=== PATIENT | male | born 1975 | race Caucasian/White ===

== ENCOUNTER 2018-08-20 23:49 | Inpatient (IN) | payer MEDICAID ==
[~2018-08-20] VITALS: Ht 170.2 cm; Wt 113.4 kg
[2018-08-20 23:50] VITALS: BP 169/112
--- NOTE | 2018-08-20 23:50 | NUR ---
PT ARRIVED BY BORA DAMON AND BORA MATHEW. PLACED INTO BED 4.
--- NOTE | 2018-08-20 23:50 | NUR ---
PER EMS PT WAS GIVEN NARCAN 2MG IN. IV ESTABLISHED BY EMS HELICOPTER PILOT INSTRUCTOR, 20 GAUGE LEFT WRIST. PATENT, FLUSHED WITH 10CC NS FLUSH, NO SIGNS OF INFILTRATION.
[2018-08-20] MEDS ORDERED: NACL 0.9% 1,000 ML IV ONE (23:55)
[2018-08-20] MEDS ORDERED: NALOXONE 0.4 MG/ML VIAL IVP ONE (23:55)
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
[2018-08-21 00:17] LABS: BASOPHILS # (AUTO) 0.1 K/uL (0.00-0.22); BASOPHILS % (AUTO) 1.1 % (0.0-2.0); EOSINOPHILS # (AUTO) 0.1 K/uL (0-0.4); EOSINOPHILS % (AUTO) 0.7 % (0.0-4.0); HEMATOCRIT 46.2 % (36-52); LYMPHOCYTES # (AUTO) 2.9 K/uL (2.0-11.5); MEAN CORPUSCULAR HEMOGLOBIN 31 pg (27-31); MEAN CORPUSCULAR HGB CONC 35 g/dL (33-37); MEAN CORPUSCULAR VOLUME 90.7 fL (80-94); MONOCYTES # (AUTO) 0.6 K/uL (0.8-1.0); MONOCYTES % (AUTO) 7.8 % (1.7-9.3); NEUTROPHILS # (AUTO) 3.5 K/uL (1.8-7.7); NEUTROPHILS % (AUTO) 49.4 % (42.2-75.2); PLATELET COUNT (AUTO) 263 K/uL (140-450); RED BLOOD CELL COUNT(AUTO) 5.09 MIL/uL (4.20-6.10); RED CELL DISTRIBUTION WIDTH 13.6 % (11.6-13.7); WHITE BLOOD COUNT (AUTO) 7.2 K/uL (4.8-10.8)
[2018-08-21 00:28] LABS: BARBITURATE, URINE NEG. ng/ml (NEG <=200); BENZODIAZEPINE, URINE NEG. ng/mL (NEG <=200); CANNABINOID, URINE NEG. ng/mL (NEG <=50); COCAINE, URINE NEG. ng/mL (NEG <=300); OPIATE, URINE NEG. ng/mL (NEG <=2000); PHENCYCLIDINE SCREEN,URINE NEG. ng/mL (NEG <=25)
[2018-08-21 00:32] LABS: ALBUMIN 3.7 g/dL (3.4-5.0); ANION GAP 17.1 (8-16); ASPARTATE AMINOTRANSFERASE 126 U/L (15-37); CARBON DIOXIDE 23.8 mmol/L (21-32); CHLORIDE 104 mmol/L (98-107); CREATININE 0.9 mg/dL (0.7-1.3); GFR ARICAN-AMERICAN 118 mL/min (>90); GLUCOSE 133 mg/dL (74-106); SODIUM SERUM 142 mmol/L (136-145); TOTAL BILIRUBIN 0.4 mg/dL (0.0-1.0); UREA NITROGEN, BLOOD 8 mg/dL (7-18)
[2018-08-21 00:33] LABS: PROTHROMBIN TIME 10.8 secs (10.8-13.4)
[2018-08-21 00:35] LABS: ACETAMINOPHEN < 0.5 ug/ml (10-30); POTASSIUM 2.9 mmol/L (3.5-5.1); SALICYLATE < 2.8 mg/dL (2.8-20.0)
[2018-08-21] MEDS ORDERED: KCL 20 MEQ/WATER INJ PREMIX 100 ML IV ONE (00:35)
[2018-08-21] MEDS ORDERED: NACL 0.9% 1,000 ML IV ONE (00:55)
--- NOTE | 2018-08-21 01:00 | NUR ---
PT IN BED RESTING WITH EYES CLOSE. RESPONSIVE TO PAINFUL STIMULI ONLY. CONTINUE TO MONITOR.
[2018-08-21] MEDS ORDERED: ACETAMINOPHEN 325 MG TAB PO PRN (01:30)
[2018-08-21] MEDS ORDERED: MULTIVITAMIN-12 10 ML, THIAMINE 100 MG, MAGNESIUM SULFATE 50% 2,000 MG, FOLIC ACID 1 MG... IV SCH ×5 (01:30)
[2018-08-21] MEDS ORDERED: ONDANSETRON 4 MG/2 ML VIAL IVP PRN (01:30)
[2018-08-21] MEDS ORDERED: HYDROcodone/APAP 7.5/325 MG 1 TAB PO PRN (01:30)
[2018-08-21] MEDS ORDERED: LORazepam 2 MG/ML VIAL IVP PRN (01:30)
[2018-08-21] MEDS: NACL 0.9% 1,000 ML IV SCH ×3 (01:30→19:38)
--- NOTE | 2018-08-21 02:00 | NUR ---
PT AMBULATED TO RESTROOM AND VOIDED. ALERT TO NAME, PLACE, EVENT. CONTINUE TO MONITOR.
[2018-08-21 02:13] LABS: FREE T4 (FREE THYROXINE) 0.89 ng/dL (0.76-1.46); PHOSPHORUS 3.8 mg/dL (2.5-4.9); THYROID STIMULATING HORMONE 1.25 uIU/mL (0.34-3.74)
--- NOTE | 2018-08-21 02:15 | NUR ---
Patient arrived in unit via gurney, accompanied by WEB CONTENT EXECUTIVE; patient is able to ambulate from gurney to bed with no assistance. Patient is A/Ox3, able to make needs known. Introduced self, updated board, oriented patient to room and hospital environment. Chief complaint of ALOC. Diagnosis is ALOC and hypokalemia. No SOB or distress noted, on room air. IV site on left hand, intact. Skin intact. Bed in the lowest position, call light within reach. Initial assessment done. Will continue to monitor.
--- NOTE | 2018-08-21 02:15 | NUR ---
REPORT GIVEN AND CARE TRANSFERED TO APRIL [facility] ROOM 110B. TRANSFERED VIA RNEY. STABLE FOR TRANSFER.
[2018-08-21] MEDS ORDERED: POTASSIUM CHLORIDE 40 MEQ, LIDOCAINE MPF 1% - 5 mL VIAL 25 MG in NACL 0.9% 250 ML IV SCH (02:30)
[2018-08-21] MEDS ORDERED: THIAMINE 200 MG/2 ML VIAL ONE (03:33)
[2018-08-21] MEDS ORDERED: MULTIVITAMIN-12 10 ML VIAL IV ONE (03:33)
[2018-08-21] MEDS ORDERED: FOLIC ACID 5 MG/ML SYR ONE (03:33)
[2018-08-21] MEDS ORDERED: MAG SULF 2000 MG/WATER PREMIX 50 ML IV ONE (03:40)
[2018-08-21] MEDS ORDERED: LISINOPRIL 10 MG TAB PO SCH (03:45)
[2018-08-21 03:50] LABS: APPEARANCE,URINE CLEAR (CLEAR); BILIRUBIN,URINE NEGATIVE (NEGATIVE); BLOOD, URINE 1+ (NEGATIVE); COLOR,URINE YELLOW (YELLOW); LEUKOCYTE ESTERASE ,URINE NEGATIVE (NEGATIVE); NITRITE, URINE NEGATIVE (NEGATIVE); PH,URINE 5.5 (5.0-9.0); UGLUCOSE NEGATIVE (NEGATIVE)
[2018-08-21 04:00] VITALS: BP 167/98
--- NOTE | 2018-08-21 04:30 | NUR ---
Vitals taken; blood pressure elevated. Dr. Larsen made aware. Orders made and carried out.
[2018-08-21 05:06] LABS: RBC,URINE 0-5 /HPF (0-5); WBC,URINE NONE SEEN /HPF (0-5)
--- NOTE | 2018-08-21 06:10 | NUR ---
Patient complained restlessness; residents made aware. Orders made and carried out. Will continue to monitor.
[2018-08-21] MEDS ORDERED: LORazepam 2 MG/ML VIAL ONE (06:28)
[2018-08-21] MEDS ORDERED: METOPROLOL 25 MG TAB PO SCH ×2 (06:30→21:00)
[2018-08-21] MEDS ORDERED: LORazepam 2 MG/ML VIAL IVP SCH (06:30)
--- NOTE | 2018-08-21 07:10 | NUR ---
Endorsed patient to AM shift nurse for continuity of care; patient in stable condition.
--- NOTE | 2018-08-21 07:11 | NUR ---
RECEIVED RE[PORT FROM, PM NURSE AT BEDSIDE. PT SLEEPING, BANANA IVF INFUSING AT 100 ML/HR. ADMITED WITH DX OF HYPOKALEMIA AND ALCOHOL WITHDRAW PT IS UNDER POLICE ARREST, POLICE AT THE DOOR SIDE. SKIN IS INTACT. NO SIGN OF DISTRESSS NOTED. INTRODUCED SELF AND UPDATED BOARD. PLACED CALL LIGHT WITHIN PT REACH. INFORMED PT TO USE CALL LIGHT FOR ANY HELP. WILL CONTINUE TO MONITOR PT.
[2018-08-21 08:00] VITALS: BP 146/93
--- NOTE | 2018-08-21 08:37 | NUR ---
PATIENT HAS BEEN SCREENED AND CATEGORIZED MODERATE NUTRITION RISK. PATIENT WILL BE SEEN WITHIN 3-5 DAYS OF ADMISSION. 08/23/18PK [address]
[2018-08-21] MEDS: PANTOPRAZOLE 40 MG INJ VIAL IVP SCH (09:33)
[2018-08-21] MEDS: THIAMINE 100 MG TAB PO SCH (09:33)
[2018-08-21] MEDS: MULTIVITAMIN 1 TAB PO SCH (09:34)
[2018-08-21] MEDS: FOLIC ACID 1 MG TAB PO SCH (09:34)
[2018-08-21] MEDS: LISINOPRIL 10 MG TAB PO SCH (09:34)
[2018-08-21] MEDS: DOCUSATE SODIUM 100 MG GELCAP PO SCH ×2 (09:34→21:53)
--- NOTE | 2018-08-21 10:05 | NUR ---
ADMINISTERED MEDS TO PT ORDERED. REPORTED TORPONIN LEVEL TO . PT IV SITE GOT INFILTRATED, STARTED NEW IV ON RT FA 20 G. WILL CONTINUE TO MONITOR PT.
[2018-08-21] MEDS ORDERED: ECOTRIN 81 MG TABEC PO SCH (11:00)
[2018-08-21 12:00] VITALS: BP 156/85
[2018-08-21] MEDS: LORazepam 1 MG TAB PO SCH ×3 (12:28→23:21)
--- NOTE | 2018-08-21 12:36 | NUR ---
ADMINISTERED MEDS TO PT ORDERED. PT TOLERATED WELL. PT WATCHING TV, FAMILY AT THE BEDSIDE. NO SIGN OF DISTRESS NOTED. PT USES BEDSIDE URINAL . WILL CONTINUE TO MONITOR PT.
[2018-08-21 16:00] VITALS: BP 170/97
--- NOTE | 2018-08-21 16:15 | NUR ---
[id number] ON THE PT. BP 170/97. PT DENIES ANY HEADACHE OR DIZZINESS. NO SIGN OF DISTRESS NOTED. INFORMED MD, WILL INPUT ORDERS.
[2018-08-21] MEDS: cloNIDine 0.1 MG TAB PO SCH ×2 (17:04→18:47)
--- NOTE | 2018-08-21 19:05 | NUR ---
ENDORSED PT TO PM NURSE. PT STABLE. LYING COMFORTABLY IN HIS BED.
--- NOTE | 2018-08-21 19:07 | NUR ---
Received endorsement from AM shift RN; patient is A/Ox4, able to make needs known, ambulatory. Introduced self, updated board. No SOB or distress noted, on room air. IV site on right upper arm, 20 gauge, intact, running IVF at 100mL/hr. Skin intact. Bed in the lowest position, call light within reach. Initial assessment done. Will continue to monitor.
[2018-08-21 20:00] VITALS: BP 155/96
--- NOTE | 2018-08-21 20:25 | NUR ---
Vitals taken, due meds given, tolerated well.
[2018-08-21] MEDS: METOPROLOL 25 MG TAB PO SCH (21:54)
--- NOTE | 2018-08-21 23:35 | NUR ---
Vitals taken, due meds given. Patient asleep, visible chest rise and fall noted.
[2018-08-22] VITALS: BP 131/65
--- NOTE | 2018-08-22 01:30 | NUR ---
Patient asleep, visible chest rise and fall noted.
[2018-08-22 04:00] VITALS: BP 137/82
--- NOTE | 2018-08-22 04:30 | NUR ---
RECEIVED PT FROM JEREMIE FOR CONTINUITY OF CARE, PT IS RESTING QUIETLY.
[2018-08-22] MEDS: LORazepam 1 MG TAB PO SCH ×3 (05:47→21:47)
[2018-08-22 06:52] LABS: BASOPHILS # (AUTO) 0.1 K/uL (0.00-0.22); BASOPHILS % (AUTO) 1.2 % (0.0-2.0); EOSINOPHILS # (AUTO) 0.2 K/uL (0-0.4); EOSINOPHILS % (AUTO) 2.9 % (0.0-4.0); HEMATOCRIT 43.8 % (36-52); HEMOGLOBIN 15.5 g/dL (12.0-18.0); LYMPHOCYTES # (AUTO) 3.5 K/uL (2.0-11.5); LYMPHOCYTES % (AUTO) 49.9 % (20.5-51.1); MEAN CORPUSCULAR HEMOGLOBIN 32 pg (27-31); MEAN CORPUSCULAR HGB CONC 35 g/dL (33-37); MEAN CORPUSCULAR VOLUME 90.8 fL (80-94); MONOCYTES # (AUTO) 0.5 K/uL (0.8-1.0); MONOCYTES % (AUTO) 7.9 % (1.7-9.3); NEUTROPHILS # (AUTO) 2.6 K/uL (1.8-7.7); NEUTROPHILS % (AUTO) 38.1 % (42.2-75.2); PLATELET COUNT (AUTO) 209 K/uL (140-450); RED BLOOD CELL COUNT(AUTO) 4.82 MIL/uL (4.20-6.10); RED CELL DISTRIBUTION WIDTH 13.2 % (11.6-13.7); WHITE BLOOD COUNT (AUTO) 6.9 K/uL (4.8-10.8)
--- NOTE | 2018-08-22 07:05 | NUR ---
Endorsed patient to AM shift RN for continuity of care; patient in stable condition.
--- NOTE | 2018-08-22 07:10 | NUR ---
RECEIVED REPORT FROM PM NURSE . PT SLEEPING ON HIS BED. VS TAKEN, NORMAL. BP 134/77, HAS IV ACCESS SITE INTACT. PT DENIES ANY PAIN OR DISTRESS., ASKING IF HE WILL BE DISCHARGED TODAY, INFORMED HIM THAT MD WILL MAKE A ROUND AND WILL LET HIM KNOW . PT STABLE AND LYING COMFORTABLY IN HIS BED. CALL LIGHT WITHIN PT REACH. WILL CONTINUE TO MONITOR PT.
[2018-08-22] MEDS: NACL 0.9% 1,000 ML IV SCH (07:30)
[2018-08-22 07:32] LABS: CREATININE 0.8 mg/dL (0.7-1.3)
[2018-08-22 07:42] LABS: CHOL/HDL RATIO 4.3 (1-4.5)
[2018-08-22 07:51] VITALS: BP 134/77
[2018-08-22] MEDS: PANTOPRAZOLE 40 MG INJ VIAL IVP SCH (09:25)
[2018-08-22] MEDS: MULTIVITAMIN 1 TAB PO SCH (09:25)
[2018-08-22] MEDS: DOCUSATE SODIUM 100 MG GELCAP PO SCH ×2 (09:26→21:48)
[2018-08-22] MEDS: ECOTRIN 81 MG TABEC PO SCH (09:26)
[2018-08-22] MEDS: THIAMINE 100 MG TAB PO SCH (09:26)
[2018-08-22] MEDS: LISINOPRIL 10 MG TAB PO SCH (09:26)
[2018-08-22] MEDS: FOLIC ACID 1 MG TAB PO SCH (09:26)
[2018-08-22] MEDS: METOPROLOL 25 MG TAB PO SCH ×2 (09:26→21:47)
--- NOTE | 2018-08-22 09:45 | NUR ---
ADMINISTERED MEDS TO PT ORDERED. PT TOLERATED HIS MEDS WELL. UP AND WENT TO RESTROOM. EATING HIS BREAKFAST.N NO SIGN OF DISTRESS NOTED AT THIS TIME. WILL CONTINUE TO MONITOR PT.
[2018-08-22] MEDS ORDERED: POTASSIUM CHLORIDE 10 MEQ TABER PO SCH (11:00)
--- NOTE | 2018-08-22 11:24 | NUR ---
ADMINISTERED K RIDER IVPB AND PO TO PT ORDERED. SLEEPING COMFORTABLY IN HIS BED. NO DISTRESS NOTED. WILL CONTINUE TO MONITOR PT.
[2018-08-22] MEDS ORDERED: POTASSIUM CHLORIDE 40 MEQ, LIDOCAINE MPF 1% - 5 mL VIAL 25 MG in NACL 0.9% 250 ML IV SCH (11:30)
[2018-08-22 12:00] VITALS: BP 161/102
--- NOTE | 2018-08-22 13:17 | NUR ---
ADMINISTERED MEDS TO PT ORDERED. PT HAS NEW IV SITE ON RT WRIST, ELÍAS ASSISTED TO INSERT IV. PT LYING COMFORTABLY IN HIS BED. WILL CONTINUE TO MONITOR HIS BP. AWARE OF THE HIGH BP.
--- NOTE | 2018-08-22 14:28 | NUR ---
CHECKED ON THE PT. STATES HAS BURNING SENSATION AT THE IV SITE. INFORMED PT THAT ITS BECAUSE OF THE POTASSIUM THAT IS BEING INFUSED. FLUSHED THE IV SITE. PT STABLE AT THIS TIME. WILL CONTINUE TO MEDICATE PT.
[2018-08-22 16:00] VITALS: BP 175/105
--- NOTE | 2018-08-22 17:29 | NUR ---
ADMINISTERED CLONIDINE FOR PT TO CONTROL HIS BP, BP AT THIS TIME IS 175/105, HR 72. WILL REASSESS BP IN HOUR . WILL CONTINUE TO MEDICATE MEDS.
[2018-08-22] MEDS ORDERED: cloNIDine 0.1 MG TAB PO SCH (17:30)
--- NOTE | 2018-08-22 19:15 | NUR ---
ENDORSED PT TO PM NURSE AT THE BEDSIDE. PT IN STABLE CONDITION.
[2018-08-22 20:00] VITALS: BP 139/91
--- NOTE | 2018-08-22 20:00 | NUR ---
Vitals taken, due meds given. Tolerated well.
[2018-08-22] MEDS ORDERED: PRAZOSIN 1 MG CAP PO SCH (21:00)
--- NOTE | 2018-08-22 22:15 | NUR ---
Rounds done, patient is watching TV, no distress noted.
[2018-08-23] VITALS: BP 130/80
--- NOTE | 2018-08-23 00:30 | NUR ---
Vitals taken, no SOB noted.
--- NOTE | 2018-08-23 02:01 | NUR ---
Checks made; patient asleep, visible chest rise and fall noted.
[2018-08-23 04:00] VITALS: BP 140/81
--- NOTE | 2018-08-23 04:00 | NUR ---
Vitals taken, patient is asleep, no distress noted.
--- NOTE | 2018-08-23 05:00 | NUR ---
Due med given, tolerated well.
[2018-08-23] MEDS: LORazepam 1 MG TAB PO SCH ×2 (05:23→12:40)
--- NOTE | 2018-08-23 07:20 | NUR ---
Endorsed patient to AM shift for continuity of care; patient in stable condition.
--- NOTE | 2018-08-23 07:25 | NUR ---
RECEIVED REPORT FROM FURNACE CONVERTER NURSE AT BEDSIDE. PT AAOX4, IV CATH TO RIGHT WRIST, 22G, SITE ASYMPTOMATIC, INTACT. PT DENIES ANY PAIN OR DISTRESS. PLAN OF CARE DISCUSSED, PT VERBALIZED UNDERSTANDING. BOARD UPDATED. CALL LIGHT WITHIN PT REACH. WILL CONTINUE TO MONITOR PT.
[2018-08-23 08:00] VITALS: BP 136/90
--- NOTE | 2018-08-23 08:05 | NUR ---
VITALS TAKEN, PT IS RESTING IN BED, WITH GF AT BEDSIDE.
[2018-08-23 08:15] LABS: HEMATOCRIT 42.9 % (36-52); HEMOGLOBIN 15.2 g/dL (12.0-18.0); MEAN CORPUSCULAR HEMOGLOBIN 32 pg (27-31); MEAN CORPUSCULAR HGB CONC 35 g/dL (33-37); MEAN CORPUSCULAR VOLUME 90.8 fL (80-94); PLATELET COUNT (AUTO) 206 K/uL (140-450); RED BLOOD CELL COUNT(AUTO) 4.72 MIL/uL (4.20-6.10); RED CELL DISTRIBUTION WIDTH 13.3 % (11.6-13.7); WHITE BLOOD COUNT (AUTO) 5.6 K/uL (4.8-10.8)
[2018-08-23 08:52] LABS: ALBUMIN 3.2 g/dL (3.4-5.0); ANION GAP 13.6 (8-16); CARBON DIOXIDE 24.4 mmol/L (21-32); CREATININE 0.8 mg/dL (0.7-1.3); MAGNESIUM 1.8 mg/dL (1.8-2.4); PHOSPHORUS 2.5 mg/dL (2.5-4.9); TOTAL BILIRUBIN 1.7 mg/dL (0.0-1.0)
[2018-08-23] MEDS ORDERED: METOPROLOL SUCCINATE 50 MG TABER PO SCH (09:00)
[2018-08-23] MEDS ORDERED: ASPI-1173 PO (09:22)
[2018-08-23] MEDS ORDERED: METO50TE2 PO (09:22)
[2018-08-23] MEDS ORDERED: LISI10TA11 PO (09:22)
[2018-08-23] MEDS ORDERED: FOLI1TAB90 PO (09:22)
[2018-08-23] MEDS ORDERED: MULT-405 PO (09:22)
[2018-08-23] MEDS ORDERED: THIA-34 PO (09:22)
[2018-08-23] MEDS ORDERED: PRAZ1CAP5 PO (09:22)
[2018-08-23 09:23] LABS: BASOPHILS % (MANUAL) 1 % (0-2); EOSINOPHILS % (MANUAL) 4 % (0-4); LYMPHOCYTES % (MANUAL) 48 % (20-46); MONOCYTES % (MANUAL) 9 % (5-12)
[2018-08-23] MEDS ORDERED: LIB25 PO (09:24)
[2018-08-23] MEDS: DOCUSATE SODIUM 100 MG GELCAP PO SCH (09:37)
[2018-08-23] MEDS: ECOTRIN 81 MG TABEC PO SCH (09:37)
[2018-08-23] MEDS: FOLIC ACID 1 MG TAB PO SCH (09:39)
[2018-08-23] MEDS: MULTIVITAMIN 1 TAB PO SCH (09:39)
[2018-08-23] MEDS: THIAMINE 100 MG TAB PO SCH (09:40)
[2018-08-23] MEDS: LISINOPRIL 10 MG TAB PO SCH (09:40)
[2018-08-23] MEDS: PANTOPRAZOLE 40 MG INJ VIAL IVP SCH (09:41)
[2018-08-23] MEDS: POTASSIUM CHLORIDE 10 MEQ TABER PO SCH ×2 (10:46→12:40)
[2018-08-23 12:00] VITALS: BP 157/91
--- NOTE | 2018-08-23 12:10 | NUR ---
VITALS TAKEN. LUNCH TRAY DELIVERED TO PT.
[2018-08-23] MEDS ORDERED: INFLUENZA VIRUS VACCINE QUAD 0.5 ML SYR IMVAC PRN (12:15)
--- NOTE | 2018-08-23 13:25 | NUR ---
DISCHARGE INSTRUCTION AND MEDICATIONS TEACHING PROVIDED. PT VERBALIZED UNDERSTANDING. DENIES PAIN AND NAUSEA AT THIS TIME. IV DC'D, TIP INTACT, PRESSURE APPLIED. RX GIVEN TO PT. PT IS AWARE OF THE MEDICATIONS HE NEED FOR TONIGHT AND HE KNOWS HE NEEDS TO CALL TO MAKE APPT TO FOLLOW UP AT [facility]. PT WANTS NOTES FOR EXCUSE TO WORK. WILL ASK .
--- NOTE | 2018-08-23 13:35 | NUR ---
CHARGE NURSE RECEIVED PHONE CALL FROM BORA MATHEW, STATING PT IS CLEARED TO GO HOME.
--- NOTE | 2018-08-23 13:40 | NUR ---
PT LEFT WITH MD NOTES FOR EXCUSE FOR WORK AND ALL HIS BELONGINGS.
== END 2018-08-23 13:40 | disposition home or self-care (01) | DRG 190 ==
LOC: MED 23:49 → MTU 08-21 01:38
PROVIDERS: ADMIT General Practice; ATTEND General Practice
DX: I21.4 Non-ST elevation (NSTEMI) myocardial infarction (principal); G92 Toxic encephalopathy; E87.2 Acidosis; I42.9 Cardiomyopathy, unspecified; F10.129 Alcohol abuse with intoxication, unspecified; Y90.7 Blood alcohol level of 200-239 mg/100 ml; E87.6 Hypokalemia; E66.9 Obesity, unspecified; Z68.39 Body mass index [BMI] 39.0-39.9, adult; Z71.3 Dietary counseling and surveillance; F41.9 Anxiety disorder, unspecified; G40.89 Other seizures; Z87.820 Personal history of traumatic brain injury; K76.89 Other specified diseases of liver; Z23 Encounter for immunization; F15.10 Other stimulant abuse, uncomplicated
CPT/HCPCS: 36415; 70450; 71045; 72125; 76705; 80048; 80053; 80305; 81001; 82140; 82150; 83036; 83605; 83690; 83735; 83880; 84100; 84439; 84443; 84484; 85025; 85610; 85730; 87081; 93005; 99285; A9153; C1758; C9113; G0480; G0482; J1644; J2001; J2060; J2310; J3411; J3475; J3480; J3490; J7030; Q0092